=== PATIENT | male | born 1975 ===

== ENCOUNTER 2017-01-10 11:23 | Emergency (ER) | payer MEDICAID ==
[2017-01-10 11:30] VITALS: O2SAT 98
[2017-01-10 11:41] VITALS: BP 127/87; RESP 20; TEMP 97
[2017-01-10 12:52] LABS: BASO % 0.3 % (0.0-2.0); EOS % 0.5 % (0.0-4.0); HEMOGLOBIN 14.3 g/dL (12.0-18.0); LYMPH % 20.6 % (20.0-40.0); MEAN CELL VOLUME 96.1 fl (80.0-94.0); MEAN CORPUSCULAR HEMOGLOBIN 32.4 pg (27.0-31.0); MEAN CORPUSCULAR HGB CONC 33.7 g/dL (33.0-37.0); MEAN PLATELET VOLUME 9.3 fl (7.2-11.7); MONO # 0.4 K/uL (0.0-0.8); MONO % 8.6 % (0.0-10.0); NEUT # 3.5 K/uL (1.8-7.0); NRBC % 0.1 % (0.0-0.0); RBC 4.41 Mil/uL (4.40-5.90); RED CELL DISTRIBUTION WIDTH 12.7 % (11.5-14.5); WHITE BLOOD COUNT 5.1 K/uL (4.8-10.8)
[2017-01-10 12:53] LABS: ALB/GLOB RATIO 1.7 (1.0-2.1); ALBUMIN 4.8 g/dL (3.5-5.0); ALT/SGPT 40 U/L (21-72); AST/SGOT 54 U/L (17-59); BLOOD UREA NITROGEN 18 mg/dl (9-20); CALCIUM 9.1 mg/dL (8.4-10.2); GFR AFRICAN-AMERICAN > 60; GFR NON-AFRICAN AMERICAN > 60
[2017-01-10 13:01] LABS: SQUAMOUS EPITHIAL 1 /hpf (0-5); URINE BACTERIA RARE (<OCC); URINE BILIRUBIN NEGATIVE (NEGATIVE); URINE BLOOD NEGATIVE (NEGATIVE); URINE CLARITY SLIGHTY-CLOUDY (Clear); URINE COLOR AMBER (YELLOW); URINE GLUCOSE (UA) NEG (Normal); URINE LEUKOCYTE ESTERASE NEG Leu/uL (Negative); URINE NITRATE NEGATIVE (NEGATIVE); URINE PROTEIN 100 mg/dL (NEGATIVE)
--- NOTE | 2017-01-10 13:11 | ED PDOC ---
HPI: Psych/Substance Abuse Time Seen by Provider: 01/10/17 11:35 Chief Complaint (Nursing): Psychiatric Evaluation History Per: Patient Additional Complaint(s): Pt. brought in by [employer] as they found pt. to be diaphoretic and acting bizarre. Pt. offers no complaints but is requesting to leave ED. Pt. believes that there are "people after me." States he has a lot of money that people want. Pt. states this has been going on for 7 years and is attempting to contact a foreign language professor to get his life in order. Denies chest pain, SOB, palpitations, abdominal pain, fever, SI/HI, hallucinations. Past Medical History Reviewed: Historical Data, Nursing Documentation, Vital Signs Vital Signs: Last Vital Signs Temp 97 F L 01/10/17 11:40 Pulse 96 H 01/10/17 11:40 Resp 20 01/10/17 11:40 BP 127/87 01/10/17 11:40 Pulse Ox 98 01/10/17 11:40 - Medical History PMH: Anxiety, Asthma, Bipolar Disorder (from old chart but pt denies), Depression, Diabetes (type II), Hepatitis, Schizophrenia (from old chart but pt denies) Denies: HIV, HTN, Chronic Kidney Disease, Seizures, Sexually Transmitted Disease - Surgical History Surgical History: Tonsillectomy - Family History Family History: States: No Known Family Hx - Immunization History Hx Tetanus Toxoid Vaccination: No Hx Influenza Vaccination: No Hx Pneumococcal Vaccination: No - Home Medications Home Medications: Ambulatory Orders Medication Instructions Recorded Benztropine [Cogentin] 2 mg PO BID #60 tab 11/25/15 DiphenhydrAMINE [Benadryl] 50 mg PO Q6 PRN #30 cap 11/25/15 Divalproex [Depakote DR(*BID*)] 500 mg PO BID #60 tcp 11/25/15 Haloperidol [Haldol] 5 mg PO BID #60 tab 11/25/15 - Allergies Allergies/Adverse Reactions: Allergies Allergy/AdvReac Type Severity Reaction Status Date / Time No Known Allergies Allergy Verified 01/10/17 11:27 Review of Systems ROS Statement: Except As Marked, All Systems Reviewed And Found Negative Physical Exam - Reviewed Nursing Documentation Reviewed: Yes Vital Signs Reviewed: Yes - Physical Exam Appears: Positive for: Well, Non-toxic, No Acute Distress Head Exam: Positive for: ATRAUMATIC, NORMAL INSPECTION, NORMOCEPHALIC Skin: Positive for: Normal Color, Warm. Negative for: Rash Eye Exam: Positive for: EOMI, Normal appearance, PERRL ENT: Positive for: Normal ENT Inspection Neck: Positive for: Normal, Painless ROM Cardiovascular/Chest: Positive for: Regular Rate, Rhythm Respiratory: Positive for: CNT, Normal Breath Sounds Gastrointestinal/Abdominal: Positive for: Normal Exam, Bowel Sounds, Soft. Negative for: Tenderness Back: Positive for: Normal Inspection Extremity: Positive for: Normal ROM Neurologic/Psych: Positive for: Alert, Oriented, Mood/Affect (hyperverbal, flight of ideas but easily redirected; cooperative). Negative for: Aphasia, Facial Droop - Laboratory Results Result Diagrams: 01/10/17 12:15 01/10/17 12:15 - ECG ECG: Positive for: Interpreted By Me ECG Rhythm: Positive for: Sinus Rhythm. Negative for: ST/T Changes Rate: 60 O2 Sat by Pulse Oximetry: 98 - Progress ED Course And Treament: Labs ordered. Pt. evaluated by crisis and cleared pt. for discharge. On re-evaluation, pt. still without any complaints. Denies weakness, dizziness, chest pain, SOB, SI/HI, hallucinations. Disposition - Clinical Impression Clinical Impression: Schizophrenia - Patient ED Disposition Is Patient to be Admitted: No - Disposition Disposition: Routine/Home Disposition Time: 14:12 Condition: STABLE Instructions: Schizophrenia (ED)
[2017-01-10 13:14] VITALS: PULSE 60
[2017-01-10 13:18] LABS: BARBITURATES, UR NEGATIVE (NEGATIVE); BENZODIAZEPINES, UR NEGATIVE (NEGATIVE); OPIATES, UR NEGATIVE (NEGATIVE); PHENCYCLIDINE, UR NEGATIVE (NEGATIVE)
--- NOTE | 2017-01-10 14:20 | CARD ---
APPROVED REPORT EKG Measurement Heart [id number] <Conclusion> Normal sinus rhythm Normal ECG
== END 2017-01-10 14:28 | disposition home or self-care (01) ==
LOC: H.ER 11:23
DX: F20.9 Schizophrenia, unspecified (principal); F31.9 Bipolar disorder, unspecified; F41.9 Anxiety disorder, unspecified; J45.909 Unspecified asthma, uncomplicated; E11.9 Type 2 diabetes mellitus without complications

== ENCOUNTER 2017-01-16 20:15 | Emergency (ER) | payer MEDICAID ==
[2017-01-16 20:20] VITALS: BP 137/78; PULSE 72; RESP 20; TEMP 98; O2SAT 98
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
[2017-01-16 21:36] LABS: BASO % 0.3 % (0.0-2.0); EOS % 0.4 % (0.0-4.0); HEMATOCRIT 42.3 % (35.0-51.0); LYMPH # 1.6 K/uL (1.0-4.3); LYMPH % 29.8 % (20.0-40.0); MEAN CELL VOLUME 96.8 fl (80.0-94.0); MEAN CORPUSCULAR HEMOGLOBIN 32.3 pg (27.0-31.0); MEAN CORPUSCULAR HGB CONC 33.4 g/dL (33.0-37.0); MEAN PLATELET VOLUME 9.7 fl (7.2-11.7); MONO # 0.3 K/uL (0.0-0.8); NEUT # 3.5 K/uL (1.8-7.0); NEUT % 63.5 % (50.0-75.0); RED CELL DISTRIBUTION WIDTH 12.7 % (11.5-14.5); WHITE BLOOD COUNT 5.5 K/uL (4.8-10.8)
[2017-01-16 21:59] LABS: CHLORIDE 108 mmol/L (98-107); POTASSIUM 3.6 MMOL/L (3.6-5.0); RBC URINE 2 /hpf (0-3); SODIUM 144 mmol/l (132-148); URINE BILIRUBIN NEGATIVE (NEGATIVE); URINE BLOOD NEGATIVE (NEGATIVE); URINE COLOR AMBER (YELLOW); URINE GLUCOSE (UA) NEG (Normal); URINE KETONE NEGATIVE (NEGATIVE); URINE LEUKOCYTE ESTERASE NEG Leu/uL (Negative); URINE PROTEIN 30 mg/dL (NEGATIVE); WBC URINE 4 /hpf (0-5)
[2017-01-16 22:01] LABS: BILIRUBIN,TOTAL 0.8 mg/dl (0.2-1.3); CARBON DIOXIDE 28 mmol/L (22-30); GFR AFRICAN-AMERICAN > 60
[2017-01-16 22:02] LABS: ALB/GLOB RATIO 1.5 (1.0-2.1); ALKALINE PHOSPHATASE 90 U/L (38-126); ALT/SGPT 33 U/L (21-72); AST/SGOT 39 U/L (17-59); BLOOD UREA NITROGEN 10 mg/dl (9-20); CALCIUM 9.1 mg/dL (8.4-10.2); GLUCOSE,RANDOM 79 mg/dL (75-110); TOTAL PROTEIN 7.5 G/DL (6.3-8.2)
[2017-01-16 22:03] LABS: ALCOHOL SERUM < 10 mg/dl (0-10)
--- NOTE | 2017-01-17 09:50 | RAD ---
HISTORY: routine COMPARISON: Chest x-ray performed 11/17/15 TECHNIQUE: Chest, one view. FINDINGS: Examination limited by habitus. LUNGS: The left costophrenic angle is excluded from view. No focal consolidation. Please note that chest x-ray has limited sensitivity for the detection of pulmonary masses. PLEURA: No significant pleural effusion identified. No definite pneumothorax . CARDIOVASCULAR: Heart size appears within normal limits. OSSEOUS STRUCTURES: No acute osseous abnormality identified. VISUALIZED UPPER ABDOMEN: Unremarkable. OTHER FINDINGS: None. IMPRESSION: No focal consolidation, significant pleural effusion, or definite pneumothorax identified.
--- NOTE | 2017-01-17 10:21 | CARD ---
APPROVED REPORT EKG Measurement Heart [id number] <Conclusion> Normal sinus rhythm Normal ECG
== END 2017-01-16 23:10 | disposition home or self-care (01) ==
LOC: H.ER 20:15
DX: F29 Unspecified psychosis not due to a substance or known physiological condition (principal); E11.9 Type 2 diabetes mellitus without complications; F20.9 Schizophrenia, unspecified; F31.9 Bipolar disorder, unspecified; F41.9 Anxiety disorder, unspecified; J45.909 Unspecified asthma, uncomplicated

== ENCOUNTER 2017-01-29 09:33 | Emergency (ER) | payer MEDICAID ==
[2017-01-29 09:37] VITALS: BP 137/89; PULSE 83; TEMP 97; O2SAT 98; BMI 27.2
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
== END 2017-01-29 11:00 | disposition home or self-care (01) ==
LOC: H.ER 09:33 → SUPCPDRO 09:33 → H.ER 11:00
DX: F25.1 Schizoaffective disorder, depressive type (principal); F31.9 Bipolar disorder, unspecified; F41.9 Anxiety disorder, unspecified; E11.9 Type 2 diabetes mellitus without complications

== ENCOUNTER 2017-02-12 00:25 | Inpatient (IN) | payer MEDICAID ==
[2017-02-12] MEDS ORDERED: Gentamicin Sulfate 0.3% Ophth SOLN OU STA (01:27)
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
[2017-02-12] MEDS ORDERED: Gentamicin Sulfate 0.3% Ophth SOLN ONE (02:10)
[2017-02-12 03:00] LABS: BASO % 0.4 % (0.0-2.0); EOS % 0.6 % (0.0-4.0); HEMATOCRIT 39.9 % (35.0-51.0); LYMPH # 1.4 K/uL (1.0-4.3); LYMPH % 18.5 % (20.0-40.0); MEAN CELL VOLUME 96.1 fl (80.0-94.0); MEAN CORPUSCULAR HGB CONC 33.3 g/dL (33.0-37.0); MEAN PLATELET VOLUME 9.9 fl (7.2-11.7); MONO # 0.7 K/uL (0.0-0.8); MONO % 9.7 % (0.0-10.0); NEUT # 5.3 K/uL (1.8-7.0); NEUT % 70.8 % (50.0-75.0); RED CELL DISTRIBUTION WIDTH 12.6 % (11.5-14.5); WHITE BLOOD COUNT 7.4 K/uL (4.8-10.8)
[2017-02-12 03:16] LABS: RBC URINE 3 /hpf (0-3); URINE BILIRUBIN NEGATIVE (NEGATIVE); URINE BLOOD NEGATIVE (NEGATIVE); URINE COLOR AMBER (YELLOW); URINE GLUCOSE (UA) NEG (Normal); URINE KETONE 20 mg/dL (NEGATIVE); URINE LEUKOCYTE ESTERASE NEG Leu/uL (Negative); URINE PROTEIN 100 mg/dL (NEGATIVE); URINE UROBILINOGEN 0.2-1.0 mg/dL (0.2-1.0); WBC URINE 5 /hpf (0-5)
[2017-02-12 03:20] LABS: BLOOD UREA NITROGEN 22 mg/dl (9-20); CARBON DIOXIDE 26 mmol/L (22-30); CHLORIDE 101 mmol/L (98-107); GFR AFRICAN-AMERICAN > 60; GLUCOSE,RANDOM 85 mg/dL (75-110); POTASSIUM 3.5 MMOL/L (3.6-5.0); SODIUM 139 mmol/l (132-148)
[2017-02-12 03:21] LABS: ALB/GLOB RATIO 1.5 (1.0-2.1); ALKALINE PHOSPHATASE 88 U/L (38-126); ALT/SGPT 30 U/L (21-72); AST/SGOT 34 U/L (17-59); BILIRUBIN,TOTAL 1.5 mg/dl (0.2-1.3); TOTAL PROTEIN 7.2 G/DL (6.3-8.2)
[2017-02-12 03:22] LABS: ALCOHOL SERUM < 10 mg/dl (0-10)
[2017-02-12 03:57] VITALS: O2SAT 100
[2017-02-12] MEDS ORDERED: Magnesium Hydroxide Susp 30 ml UD PO PRN (04:37)
[2017-02-12] MEDS ORDERED: DiphenhydrAMINE 50 mg/ml Inj IM PRN (04:37)
[2017-02-12] MEDS ORDERED: Alum-Mag Hydrox-Simethicone Susp (30 mL) PO PRN (04:37)
--- NOTE | 2017-02-12 04:51 | PCM.BM ---
<Karla Davison - Last Filed: 02/12/17 04:49> Treatment Plan Problems - Problems identified on initial assessmt delusion Date Initiated: 02/12/17 Time Initiated: 04:49 Assessment reference: NA Status: Active medication non adherence Date Initiated: 02/12/17 Time Initiated: 04:50 Assessment reference: NA Status: Active Treatment assets and liabiliti Patient Assests: adapts well, self-reliant, ADL independent, physically healthy , negotiates basic needs, cognitively intact Patient Liabilities: live alone, poor support system, legal issue - Milieu Protocol Maintain good personal hygiene: daily Encourage regular showers, daily Remind patient to perform daily oral care, daily Assist patient to perform ADL's Conduct patient checks and document Observation sheet: Q15 minutes Maintain personal safety: every shift Educate patient to report safety concerns to staff, every shift Monitor environment for contraband/sharps Medication safety: Monitor for expected outcome, potential side effects: every shift, Assess barriers to learning: every shift, Assess readiness for medication education: every shift Discharge/Continuing Care - Education Needs Education Needs: Patient Medication, Patient Diagnosis/Disease Process, Patient Community resources, Patient Personal Hygiene/Grooming - Discharge Discharge Criteria: Tolerates medication w/o severe side effects, Free of paranoid thoughts, Normal sleep pattern Discharge to:: Home <Monica Gar - Last Filed: 02/12/17 09:46> - Diagnosis (1) Schizoaffective disorder Status: Acute Interventions: Medication management, psychoeducation, individual and group therapy, medicine consultation 02/12/17 09:47 <Dara Clemons - Last Filed: 02/13/17 16:56> Family Contact Family contact: Patient agrees to contact Family contact name: Sheri Mark (aunt) Family contacted how many times per week?: 2 Family contact comment: [phone] Discharge/Continuing Care - Education Needs Education Needs: Family Medication, Family Diagnosis/Disease Process, Family Community resources, Family Nutrition, Family Personal Hygiene/Grooming, Family Aftercare Safety Plan, Patient Medication, Patient Diagnosis/Disease Process, Patient Coping Skills, Patient Community resources, Patient Nutrition, Patient Personal Hygiene/Grooming, Patient Aftercare Safety Plan - Discharge Discharge Criteria: Tolerates medication w/o severe side effects, Free of paranoid thoughts, Free of agitation, Normal sleep pattern, Reduction of target symptoms Discharge to:: Home, With Family - Additional Comments 02/13/17 16:59 Due to extensive and multiple psychiatric hospitalizations (voluntary and involuntary) pt would benefit from a PACT TEAM test case developer vs. ICMS. Pt has an extensive hx of medication and treatment non-compliance. Pt has limited support system in the community. <Bill Robertson - Last Filed: 02/15/17 11:19> Family Contact - Goals for Treatment Patient goals for treatment: Pt is focused on housing and legal issues that he wants to be resolved.
[2017-02-12 07:45] LABS: T4 8.39 ug/dl (5.5-11.0)
[2017-02-12 07:58] LABS: THYROID STIMULATING HORMONE 0.65 mIU/ML (0.46-4.68)
--- NOTE | 2017-02-12 09:55 | RAD ---
HISTORY: admit COMPARISON: 01/16/2017. FINDINGS: LUNGS: No active pulmonary disease. PLEURA: No significant pleural effusion identified, no pneumothorax apparent. CARDIOVASCULAR: Normal. OSSEOUS STRUCTURES: No significant abnormalities. VISUALIZED UPPER ABDOMEN: Normal. OTHER FINDINGS: None. IMPRESSION: The lungs are well inflated and clear. No active pulmonary disease.
--- NOTE | 2017-02-12 10:17 | PCM.PSYCH ---
Initial Psychiatric Evaluation - Initial Psychiatric Evaluation Type of Admission: Voluntary Legal Status: Capacity Chief Complaint (in patient's own words): "Let me tell you my whole life story." Patient's Reaction to Hospitalization: HPI: 41 yo male w/ h/o schizoaffective d/o presents acutely psychotic, religiously preoccupied, w/ bizarre behavior, emotionally labile, non-linear speech, flight of ideas, paranoia and pressured/rapid speech. Patient was difficult to interview due to his acute disorganization and psychosis. He would not answer questions linearly. No SI/HI. PPHx: Multiple past psychiatric hospitalizations. [place] [facility] [place] History of non-compliance w/ treatment and medications. PMHx: Patient denies chronic medical issues, but he is a poor historian at this time. +Conjunctivitis ALL: NKDA SHx: Lives in an apt, denies drugs/etoh use. Current Medications: Active Medications Generic Name Dose Route Start Last Admin Trade Name Freq PRN Reason Stop Dose Admin Acetaminophen 650 mg 02/12/17 04:37 Tylenol 325mg Tab PO Q4 PRN pain 4-7 Al Hydrox/Mg Hydrox/Simethicone 30 ml 02/12/17 04:37 Maalox Plus 30 Ml PO Q4 PRN Dyspepsia Benztropine Mesylate 1 mg 02/12/17 09:45 Cogentin PO BID ALBARO Diphenhydramine HCl 50 mg 02/12/17 04:37 Benadryl IM Q6 PRN Extrapyramidal S/S Unable PO Diphenhydramine HCl 50 mg 02/12/17 04:37 Benadryl PO Q6 PRN Extrapyramidal Symptoms Diphenhydramine HCl 50 mg 02/12/17 04:40 Benadryl PO HS PRN Sleep Divalproex Sodium 500 mg 02/12/17 10:00 Donald Wang(*Bid*) PO BID ALBARO Haloperidol 5 mg 02/12/17 04:37 Haldol PO Q4 PRN Agitation Haloperidol 5 mg 02/12/17 09:45 Haldol PO BID ALBARO Haloperidol Lactate 5 mg 02/12/17 04:37 Haldol IM Q4 PRN Agitation, Unable to Take PO Lorazepam 2 mg 02/12/17 04:37 Ativan IM Q4 PRN Anxiety/Agitation,Unable PO Lorazepam 2 mg 02/12/17 04:37 Ativan PO Q4 PRN Anxiety/Agitation Magnesium Hydroxide 30 ml 02/12/17 04:37 Milk Of Magnesia PO HS PRN Constipation Past Psychiatric History - Past Psychiatric History Previous Treatment History: Inpatient Pertinent Medical Hx (Current Medical&Sleep Prob, Allergies): Allergies Allergy/AdvReac Type Severity Reaction Status Date / Time No Known Allergies Allergy Verified 02/12/17 00:57 Benztropine [Cogentin] 2 mg PO BID #60 tab 11/25/15 DiphenhydrAMINE [Benadryl] 50 mg PO Q6 PRN #30 cap 11/25/15 Divalproex [Depakote DR(*BID*)] 500 mg PO BID #60 tcp 11/25/15 Haloperidol [Haldol] 5 mg PO BID #60 tab 11/25/15 Review of Systems - Psychiatric Psychiatric: As Per HPI, Abnormal Sleep Pattern, Behavioral Changes, Depression , Difficulty Concentrating, Irritability, Mood Swings, Paranoia, Other ( Congregational preoccupation) Mental Status Examination - Personal Presentation Personal Presentation: Looks stated age - Affect Affect: Other (Labile, tearful) - Motor Activity Motor Activity: Calm - Reliability in Providing Information Reliability in Providing Information: Poor, due to alteration in thoughts - Speech Speech: Disorganized, Irrelevant, Tangential - Mood Mood: Depressed - Formal Thought Process Formal Thought Process: Delusions, Paranoia, Loosening of associations, Flight of ideas, Circumstantial - Hallucinations/Delusions Additional comments: Denies AH/VH, but patient seems to be internally preoccupied. - Obsessions/Compulsions Obsessions: No Compulsions: No - Cognitive Functions Orientation: Person, Place, Situation, Time Sensorium: Alert Estimate of Intelligence: Average Judgement: Intact, as evidence by: Insight regarding need for hospitalization Memory: Recent impaired, as evidence by: Inability to recall events of the day, Recent imparied as evidence by:Inability to complete 3/3 object recall - Risk Risk: Diminished functioning - Strength & Assets Inventory Strength & Assets Inventory: Cooperative - Limitations Limitations: Living alone DSM 5 DX - DSM 5 DSM 5 Diagnosis: Schizoaffective Disorder - Recommended/Plan of Treatment Treatment Recommendations and Plan of Treatment: Schizoaffective Disorder -Admit to psychiatry -Individual and group therapy -Haldol 5 mg PO BID, Cogentin 1 mg PO BID, Depakote 500 mg PO BID -Medicine consult -Contact precautions for conjunctivitis -NO 1:1 indicated at this time -Disposition planning Projected ELOS: 4-7 days Discharge Plan and Discharge Criteria: Discharge when psychiatrically stable
[2017-02-12] MEDS: Divalproex 500 mg DR(BID formulation) PO SCH ×2 (10:19→17:33)
--- NOTE | 2017-02-12 11:19 | CARD ---
APPROVED REPORT EKG Measurement Heart [id number] <Conclusion> Normal sinus rhythm Normal ECG
--- NOTE | 2017-02-12 16:14 | CP.PCM.CON ---
History of Present Illness - History of Present Illness History of Present Illness: REASON FOR CONSULT: PER HOSPITAL PROTOCOL HPI: 41 year old male with PMH of schizoaffective disorder. Patient extremely disorganized, unable to obtain a history on patient. ROS: Patient extremely disorganized, unable to obtain a history on patient. PMH/PSH/FH/SH/MEDS/ALLERGIES: Patient extremely disorganized, unable to obtain a history on patient. Vitals reviewed Constitutional- cooperative, awake, alert. Head- NCAT, PERRLEye- PERRL, normal accommodation ENT- normal exam, MMM Neck- normal inspection, supple, no JVD Respiratory- decreased BS, no wheezes rales rhonchi Cardiovascular- RRR, +S1, +S2 no MRG GI/Abdominal- normal bowel sounds, soft Extremities Exam- normal capillary refill, normal inspection Neurological Exam- alert, oriented Psych - normal mood, normal affect 02/12/17 02:52 02/12/17 02:52 41 year old male with PMH of schizoaffective disorder. Patient extremely disorganized, unable to obtain a history on patient. Schizoaffective Disorder management per Psychiatry team Past Patient History - Infectious Disease Hx of Infectious Diseases: None - Tetanus Immunizations Tetanus Immunization: Unknown - Past Medical History & Family History Past Medical History?: Yes - Past Social History Smoking Status: Former Smoker - CARDIAC Hx Cardiac Disorders: No Hx Hypertension: Yes - PULMONARY Hx Tuberculosis: No - NEUROLOGICAL HX Cerebrovascular Accident: No Hx Seizures: No - HEENT Hx HEENT Problems: No - RENAL Hx Chronic Kidney Disease: No - ENDOCRINE/METABOLIC Hx Endocrine Disorders: Yes Hx Diabetes Mellitus Type 2: Yes - HEMATOLOGICAL/ONCOLOGICAL Hx Cancer: No Hx Human Immunodeficiency Virus (HIV): No - INTEGUMENTARY Hx Dermatological Problems: No - MUSCULOSKELETAL/RHEUMATOLOGICAL Hx Musculoskeletal Disorders: No Hx Falls: No - GASTROINTESTINAL Hx Gastrointestinal Disorders: No - GENITOURINARY/GYNECOLOGICAL Hx Sexually Transmitted Disorders: No - PSYCHIATRIC Hx Schizophrenia: Yes Hx Substance Use: No - SURGICAL HISTORY Hx Tonsillectomy: Yes - ANESTHESIA Hx Anesthesia: Yes Hx Anesthesia Reactions: No Meds Allergies/Adverse Reactions: Allergies Allergy/AdvReac Type Severity Reaction Status Date / Time No Known Allergies Allergy Verified 02/12/17 00:57 - Medications Medications: Current Medications Acetaminophen (Tylenol 325mg Tab) 650 mg PO Q4 PRN PRN Reason: pain 4-7 Al Hydrox/Mg Hydrox/Simethicone (Maalox Plus 30 Ml) 30 ml PO Q4 PRN PRN Reason: Dyspepsia Benztropine Mesylate (Cogentin) 1 mg PO BID [facility] Last Admin: 02/12/17 10:20 Dose: 1 mg Diphenhydramine HCl (Benadryl) 50 mg IM Q6 PRN PRN Reason: Extrapyramidal S/S Unable PO Diphenhydramine HCl (Benadryl) 50 mg PO Q6 PRN PRN Reason: Extrapyramidal Symptoms Diphenhydramine HCl (Benadryl) 50 mg PO HS PRN PRN Reason: Sleep Divalproex Sodium (Depakote Dr(*Bid*)) 500 mg PO BID [facility] Last Admin: 02/12/17 10:19 Dose: 500 mg Haloperidol (Haldol) 5 mg PO Q4 PRN PRN Reason: Agitation Haloperidol (Haldol) 5 mg PO BID [facility] Last Admin: 02/12/17 10:20 Dose: 5 mg Haloperidol Lactate (Haldol) 5 mg IM Q4 PRN PRN Reason: Agitation, Unable to Take PO Lorazepam (Ativan) 2 mg IM Q4 PRN PRN Reason: Anxiety/Agitation,Unable PO Lorazepam (Ativan) 2 mg PO Q4 PRN PRN Reason: Anxiety/Agitation Magnesium Hydroxide (Milk Of Magnesia) 30 ml PO HS PRN PRN Reason: Constipation Results - Vital Signs Recent Vital Signs: Last Vital Signs Temp 97.1 F L 02/12/17 05:53 Pulse 75 02/12/17 05:53 Resp 18 02/12/17 05:53 BP 115/67 02/12/17 05:53 Pulse Ox 100 02/12/17 03:57 - Labs Result Diagrams: 02/12/17 02:52 02/12/17 02:52 Labs: Laboratory Results - last 24 hr 02/12/17 02/12/17 02/12/17 02:52 02:52 02:52 WBC 7.4 RBC 4.16 L Hgb 13.3 Hct 39.9 MCV 96.1 H MCH 32.0 H MCHC 33.3 RDW 12.6 Plt Count 180 MPV 9.9 Neut % (Auto) 70.8 Lymph % (Auto) 18.5 L [place] % (Auto) 9.7 Eos % (Auto) 0.6 Baso % (Auto) 0.4 Neut # 5.3 Lymph # 1.4 [place] # 0.7 Eos # 0.0 Baso # 0.0 Sodium 139 Potassium 3.5 L Chloride 101 Carbon Dioxide 26 Anion Gap 16 BUN 22 H Creatinine 0.7 L Est GFR ( Amer) > 60 Est GFR (Non-Af Amer) > 60 Random Glucose 85 Calcium 9.0 Total Bilirubin 1.5 H AST 34 ALT 30 Alkaline Phosphatase 88 Total Protein 7.2 Albumin 4.3 Globulin 2.9 Albumin/Globulin Ratio 1.5 Thyroxine (T4) Total T3 TSH 3rd Generation Urine Color Urine Clarity Urine pH Ur Specific [place] Urine Protein Urine Glucose (UA) Urine Ketones Urine Blood Urine Nitrate Urine Bilirubin Urine Urobilinogen Ur Leukocyte Esterase Urine RBC (Auto) Urine Microscopic WBC Ur Squamous Epith Cells Hyaline Casts Urine Opiates Screen Negative Urine Methadone Screen Negative Ur Barbiturates Screen Negative Ur Phencyclidine Scrn Negative Ur Amphetamines Screen Negative U Benzodiazepines Scrn Negative U Oth Cocaine Metabols Negative U Cannabinoids Screen Negative Alcohol, Quantitative < 10 02/12/17 02/12/17 02:52 06:30 WBC RBC Hgb Hct MCV MCH MCHC RDW Plt Count MPV Neut % (Auto) Lymph % (Auto) [place] % (Auto) Eos % (Auto) Baso % (Auto) Neut # Lymph # [place] # Eos # Baso # Sodium Potassium Chloride Carbon Dioxide Anion Gap BUN Creatinine Est GFR ( Amer) Est GFR (Non-Af Amer) Random Glucose Calcium Total Bilirubin AST ALT Alkaline Phosphatase Total Protein Albumin Globulin Albumin/Globulin Ratio Thyroxine (T4) 8.39 Total T3 1.21 L TSH 3rd Generation 0.65 Urine Color [place] Urine Clarity Cloudy Urine pH 5.0 Ur Specific [place] 1.034 H Urine Protein 100 Urine Glucose (UA) Neg Urine Ketones 20 Urine Blood Negative Urine Nitrate Negative Urine Bilirubin Negative Urine Urobilinogen 0.2-1.0 Ur Leukocyte Esterase Neg Urine RBC (Auto) 3 Urine Microscopic WBC 5 Ur Squamous Epith Cells 1 Hyaline Casts 3-5 H Urine Opiates Screen Urine Methadone Screen Ur Barbiturates Screen Ur Phencyclidine Scrn Ur Amphetamines Screen U Benzodiazepines Scrn U Oth Cocaine Metabols U Cannabinoids Screen Alcohol, Quantitative
[2017-02-13 08:21] LABS: ALB/GLOB RATIO 1.4 (1.0-2.1); ALKALINE PHOSPHATASE 80 U/L (38-126); ALT/SGPT 32 U/L (21-72); AST/SGOT 25 U/L (17-59); BILIRUBIN,TOTAL 0.9 mg/dl (0.2-1.3); BLOOD UREA NITROGEN 12 mg/dl (9-20); CALCIUM 8.6 mg/dL (8.4-10.2); CARBON DIOXIDE 27 mmol/L (22-30); CHLORIDE 103 mmol/L (98-107); CHOLESTEROL 118 mg/dL (0-199); GFR AFRICAN-AMERICAN > 60; GLUCOSE,RANDOM 86 mg/dL (75-110); SODIUM 140 mmol/l (132-148); TOTAL PROTEIN 6.6 G/DL (6.3-8.2)
[2017-02-13] MEDS: Divalproex 500 mg DR(BID formulation) PO SCH ×2 (08:54→19:09)
--- NOTE | 2017-02-13 08:55 | PCM.PYCHPN ---
Psychiatric Progress Note - Psychiatric Progress Note Patient seen today, length of contact: Patient evaluated, case discussed with team, chart reviewed, 35 min Patient Chief Complaint: "There was a light beam in my oatmeal" Problems Identified/Issues Discussed: Patient continues to be acutely disorganized, labile and paranoid. He talks about various people in his apartment building who were trying to drug him and accuse him of doing things so he can end up going to shelter. He is compliant with the medications and denies adverse effects. Tar Distillation Supervisor attempted to discuss starting Haldol Decanoate with the patient but he was only interested in talking about his delusions. Medication Change: No Medical Record Reviewed: Yes Mental Status Examination - Cognitive Function Orientation: Person, Place, Situation, Time Memory: Intact Attention: Poor Concentration: Poor Association: Loose Decription of patient's judgement and insights: Poor insight/judgment - Mood Mood: Depressed - Affect Affect: Other (Labile, tearful) - Speech Speech: Pressured - Formal Thought Process Formal Thought Process: Delusions, Paranoia, Loosening of associations, Flight of ideas, Circumstantial Psychotic Thoughts and Behaviors: +Paranoia, delusions - Suicidal Ideation Suicidal Ideation: No - Homicidal Ideation Homicidal Ideation: No Goal/Treatment Plan - Goal/Treatment Plan Need for Continued Stay: Remain at risks for inpatient hospitalization, Discharge may exacerbated symptoms, Severe functional impairment Progress Toward Problem(s) and Goals/Treatment Plan: Schizoaffective Disorder; patient continues to be disorganized, paranoid and delusional w/ poor insight and judgment. He requires continued hospitalization for treatment and safety. -Individual and group therapy -Continue Haldol 5 mg PO BID, Cogentin 1 mg PO BID, Depakote 500 mg PO BID -Medicine consult appreciated -Contact precautions for conjunctivitis -NO 1:1 indicated at this time -Disposition planning Estimated Date of D/C: 02/18/17
[2017-02-13] MEDS: Dexamethasone/Tobramycin Ophth Susp OU SCH ×5 (08:56→21:23)
[2017-02-14] MEDS: Dexamethasone/Tobramycin Ophth Susp OU SCH ×6 (01:29→21:39)
[2017-02-14] MEDS: Divalproex 500 mg DR(BID formulation) PO SCH ×2 (09:34→16:35)
--- NOTE | 2017-02-14 10:37 | PCM.PYCHPN ---
Psychiatric Progress Note - Psychiatric Progress Note Patient seen today, length of contact: Patient evaluated, case discussed with team, chart reviewed, 35 min Patient Chief Complaint: "You believe me don't you." Problems Identified/Issues Discussed: Patient continues to paranoid, but is less labile, with normal speech (not pressured) and more organized on conversation. Senior It Specialist discussed starting Haldol Decanoate, but he is not agreeable at this time due to concerns that someone may try to inject something harmful in him. He talks about various people in his apartment building who were trying to drug him and accuse him of doing things. He is compliant with the medications and denies adverse effects. Medication Change: No Medical Record Reviewed: Yes Mental Status Examination - Cognitive Function Orientation: Person, Place, Situation, Time Memory: Intact Attention: WNL Concentration: WNL Association: Loose Fund of Knowledge: WNL Decription of patient's judgement and insights: Poor insight/ improving judgment - Mood Mood: Depressed - Affect Affect: Constricted - Speech Speech: Appropriate - Formal Thought Process Formal Thought Process: Delusions, Paranoia, Loosening of associations, Flight of ideas, Circumstantial Psychotic Thoughts and Behaviors: +Paranoia, delusions - Suicidal Ideation Suicidal Ideation: No - Homicidal Ideation Homicidal Ideation: No Goal/Treatment Plan - Goal/Treatment Plan Need for Continued Stay: Remain at risks for inpatient hospitalization, Discharge may exacerbated symptoms, Severe functional impairment Progress Toward Problem(s) and Goals/Treatment Plan: Schizoaffective Disorder; patient continues to be paranoid and delusional w/ poor insight. He requires continued hospitalization for treatment and safety. -Individual and group therapy -Continue Haldol 5 mg PO BID, Cogentin 1 mg PO BID, Depakote 500 mg PO BID -Medicine consult appreciated -Discontinue contact precautions for conjunctivitis -NO 1:1 indicated at this time -Disposition planning Estimated Date of D/C: 02/18/17
[2017-02-15] MEDS: Dexamethasone/Tobramycin Ophth Susp OU SCH ×8 (01:00→21:07)
--- NOTE | 2017-02-15 08:20 | PCM.PYCHPN ---
Psychiatric Progress Note - Psychiatric Progress Note Patient seen today, length of contact: Patient evaluated, case discussed with team, chart reviewed, 35 min Patient Chief Complaint: "You believe me don't you." Problems Identified/Issues Discussed: Patient is improving clinically. He continues to paranoid, but is less labile, with normal speech, more organized on conversation, but continues to be tangential at times. He is compliant with the medications and denies adverse effects. Medication Change: No Medical Record Reviewed: Yes Mental Status Examination - Cognitive Function Orientation: Person, Place, Situation, Time Memory: Intact Attention: WNL Concentration: WNL Association: Loose Fund of Knowledge: WNL Decription of patient's judgement and insights: Poor insight/ improving judgment - Mood Mood: Depressed - Affect Affect: Constricted - Speech Speech: Appropriate - Formal Thought Process Formal Thought Process: Delusions, Paranoia, Loosening of associations, Flight of ideas, Circumstantial Psychotic Thoughts and Behaviors: +Paranoia, delusions - Suicidal Ideation Suicidal Ideation: No - Homicidal Ideation Homicidal Ideation: No Goal/Treatment Plan - Goal/Treatment Plan Need for Continued Stay: Remain at risks for inpatient hospitalization, Discharge may exacerbated symptoms, Severe functional impairment Progress Toward Problem(s) and Goals/Treatment Plan: Schizoaffective Disorder; patient continues to be paranoid and delusional. He requires continued hospitalization for treatment and safety. -Individual and group therapy -Continue Haldol 5 mg PO BID, Cogentin 1 mg PO BID, Depakote 500 mg PO BID -Medicine consult appreciated -NO 1:1 indicated at this time -Disposition planning Estimated Date of D/C: 02/18/17
[2017-02-15] MEDS: Divalproex 500 mg DR(BID formulation) PO SCH ×2 (08:48→16:58)
[2017-02-16] MEDS: Dexamethasone/Tobramycin Ophth Susp OU SCH ×6 (05:00→21:12)
[2017-02-16] MEDS: Divalproex 500 mg DR(BID formulation) PO SCH ×2 (08:50→17:32)
[2017-02-17] MEDS: Dexamethasone/Tobramycin Ophth Susp OU SCH ×6 (03:41→21:06)
[2017-02-17] MEDS: Divalproex 500 mg DR(BID formulation) PO SCH ×2 (09:44→17:39)
--- NOTE | 2017-02-17 18:44 | PCM.PYCHPN ---
Psychiatric Progress Note - Psychiatric Progress Note Patient seen today, length of contact: late note [id number] pt adelaida case discussed with team, chart reviewed, 35 min Patient Chief Complaint: was feeling like people were watching me following me taping my actions in my room Problems Identified/Issues Discussed: alteration in cognition Medical Problems: per chart Diagnostic Results: per psychiatry per medicine per nursing per social work Medication Change: No Medical Record Reviewed: Yes Consults ordered or reviewed: pt being seen by hospitalist Mental Status Examination - Cognitive Function Orientation: Person, Place, Situation, Time Memory: Intact Attention: WNL Concentration: WNL Association: Loose Fund of Knowledge: WNL Decription of patient's judgement and insights: impaired - Mood Mood: Depressed - Affect Affect: Constricted - Speech Speech: Appropriate - Formal Thought Process Formal Thought Process: Delusions, Paranoia, Loosening of associations, Flight of ideas, Circumstantial - Suicidal Ideation Suicidal Ideation: No - Homicidal Ideation Homicidal Ideation: No Goal/Treatment Plan - Goal/Treatment Plan Need for Continued Stay: Remain at risks for inpatient hospitalization, Discharge may exacerbated symptoms, Severe functional impairment Progress Toward Problem(s) and Goals/Treatment Plan: inpt milieu adjust meds per steve discharge planning in progress Estimated Date of D/C: 02/18/17 - Smoking Cessation Smoking Cessation Initiated: No Reason for not providing: pt defers
--- NOTE | 2017-02-17 18:46 | PCM.PYCHPN ---
Psychiatric Progress Note - Psychiatric Progress Note Patient seen today, length of contact: pt adelaida case discussed with team, chart reviewed, 35 min Patient Chief Complaint: was feeling like people were watching me following me taping my actions in my room Problems Identified/Issues Discussed: alteration in cognition Medical Problems: per chart Diagnostic Results: per psychiatry per medicine per nursing per social work DSM 5 Symptoms Update: alteration in cognition somewhat improving Medication Change: No Medical Record Reviewed: Yes Consults ordered or reviewed: pt being followed by hospitalist Mental Status Examination - Cognitive Function Orientation: Person, Place, Situation, Time Memory: Intact Attention: WNL Concentration: WNL Association: Loose Fund of Knowledge: WNL Decription of patient's judgement and insights: impaired - Mood Mood: Depressed - Affect Affect: Constricted - Speech Speech: Appropriate - Formal Thought Process Formal Thought Process: Delusions, Paranoia, Loosening of associations, Flight of ideas, Circumstantial - Suicidal Ideation Suicidal Ideation: No - Homicidal Ideation Homicidal Ideation: No Goal/Treatment Plan - Goal/Treatment Plan Need for Continued Stay: Remain at risks for inpatient hospitalization, Discharge may exacerbated symptoms, Severe functional impairment Progress Toward Problem(s) and Goals/Treatment Plan: inpt milieu adjust meds per aydeetus discharge planning in progress Estimated Date of D/C: 02/19/17 - Smoking Cessation Smoking Cessation Initiated: No Reason for not providing: pt defers
[2017-02-18] MEDS: Dexamethasone/Tobramycin Ophth Susp OU SCH ×6 (01:00→22:16)
[2017-02-18 05:40] VITALS: RESP 18
[2017-02-18] MEDS: Divalproex 500 mg DR(BID formulation) PO SCH ×2 (08:36→16:59)
--- NOTE | 2017-02-18 09:02 | PCM.PYCHPN ---
Psychiatric Progress Note - Psychiatric Progress Note Patient seen today, length of contact: Patient evaluated, case discussed with team, chart reviewed 35 min Patient Chief Complaint: "I'm feeling better" Problems Identified/Issues Discussed: Patient continues to improve clinically. He is calmer, more linear on conversation. Even though he does have paranoid beliefs about what has happened to him in the past, he is less pressured about them and feels safe returning to his apt. He does not feel he is in any acute danger. He is compliant with the medications and denies adverse effects. Diagnostic Results: VPA 51.7 on 02/17/17 Medication Change: No Medical Record Reviewed: Yes Mental Status Examination - Cognitive Function Orientation: Person, Place, Situation, Time Memory: Intact Attention: WNL Concentration: WNL Association: WNL Fund of Knowledge: WN Decription of patient's judgement and insights: Improving I/J - Mood Mood: Neutral - Affect Affect: Constricted - Speech Speech: Appropriate - Formal Thought Process Formal Thought Process: Paranoia Psychotic Thoughts and Behaviors: +Less paranoia - Suicidal Ideation Suicidal Ideation: No - Homicidal Ideation Homicidal Ideation: No Goal/Treatment Plan - Goal/Treatment Plan Need for Continued Stay: Remain at risks for inpatient hospitalization Progress Toward Problem(s) and Goals/Treatment Plan: Schizoaffective Disorder; patient is improving clinically, if he continues to improve, he will likely be psychiatrically stable for discharge tomorrow. -Individual and group therapy -Stop Haldol PO (patient now on Haldol Decanoate dose given 02/15/17), Cogentin 1 mg PO BID, Depakote 500 mg PO BID -Medicine consult appreciated -Disposition planning Estimated Date of D/C: 02/19/17
[2017-02-18 14:34] VITALS: BMI 30.4
[2017-02-19] MEDS: Dexamethasone/Tobramycin Ophth Susp OU SCH ×4 (01:01→13:15)
[2017-02-19 05:55] VITALS: BP 95/57; PULSE 53; TEMP 97.2
--- NOTE | 2017-02-19 08:29 | PCM.PYCHDC ---
Mental Status Examination - Mental Status Examination Orientation: Person, Place, Situation, Time Memory: Intact Mood: Neutral Affect: Broad Speech: Appropriate Attention: WNL Concentration: WNL Association: WNL Fund of Knowledge: WNL Formal Thought Process: No Impairment Description of patient's judgement and insight: Fair I/J Psychotic Thoughts and Behaviors: Denies AH/VH/paranoia Suicidal Ideation: No Current Homicidal Ideation?: No Discharge Summary - Discharge Note Reason for Hospitalization: HPI: 41 yo male w/ h/o schizoaffective d/o presents acutely psychotic, religiously preoccupied, w/ bizarre behavior, emotionally labile, non-linear speech, flight of ideas, paranoia and pressured/rapid speech. Patient was difficult to interview due to his acute disorganization and psychosis. He would not answer questions linearly. No SI/HI. PPHx: Multiple past psychiatric hospitalizations. Last hospitalized at [facility] [place] in 11/2015. History of non-compliance w/ treatment and medications. PMHx: Patient denies chronic medical issues, but he is a poor historian at this time. +Conjunctivitis ALL: NKDA SHx: Lives in an apt, denies drugs/etoh use. Laboratory Data: VPA 51.7 on 02/17/17 Consultations:: List each consultation separately and include: 1. Reason for request. 2. Findings. 3. Follow-up Consultations: Medicine consult- patient treated for conjunctivitis Summary of Hospital Course include:: 1. Description of specific treatment plan utilized for patients during their course of treatmen. 2. Summarize the time- course for resolution of acute symptoms and/or regressed behaviors. 3. Describe issues identified and worked on during hospitalization. 4. Describe medication utilized. 5. Describe medical problems identified and treated. 6. Reassessment of suicide risk Summary of Hospital Course: Patient admitted to the psychiatry unit. He was stabilized on Haldol 5 mg PO BID and then was transition to Haldol Decanoate 100 mg PO Daily and then the Haldol PO was tapered and stopped. Patient was also treated w/ cogentin and stabilized on Depakote 500 mg PO BID. Patient is no longer manic, is more linear on conversation and is not expressing paranoid ideation. He is psychiatrically stable for discharge at this time. - Diagnosis (1) Schizoaffective disorder Current Visit: Yes Status: Chronic - Final Diagnosis (DSM 5) Condition upon Discharge: STABLE DSM 5: Schizoaffective Disorder, Bipolar type Disposition: HOME/ ROUTINE Follow-up Treatment Plan: Schizoaffective Disorder; patient is now psychiatrically stable for discharge. -Haldol Decanoate 100 mg PO Monthly (next dose due 03/15/17), Cogentin 1 mg PO BID, Depakote 500 mg PO BID -VPA 51.7 on 02/17/17 -Medicine consult appreciated Prescriptions/Medication Reconciliation: Benztropine [Cogentin] 1 mg PO BID #60 tab Divalproex [Depakote DR(*BID*)] 500 mg PO BID #60 tcp - Smoking Cessation Smoking Cessation Medication prescribed: No Reason for not providing: Not indicated - Antipsychotic Medications Pt discharged on 2 or more routine antipsychotic medications: No
[2017-02-19] MEDS: Divalproex 500 mg DR(BID formulation) PO SCH (09:06)
== END 2017-02-19 15:30 | disposition home or self-care (01) | DRG 430 ==
LOC: H.ER 00:25 → H.ERHOLD 02:14 → H.STEP 04:33
PROVIDERS: ADMIT Psychiatry & Neurology Psychiatry; ATTEND Psychiatry & Neurology Psychiatry
PROC: GZ51ZZZ Individual Psychotherapy, Behavioral (ICD-10-PCS; principal; 2017-02-12)
DX: F25.0 Schizoaffective disorder, bipolar type (principal); E11.9 Type 2 diabetes mellitus without complications; I10 Essential (primary) hypertension; H10.9 Unspecified conjunctivitis; J45.909 Unspecified asthma, uncomplicated; F32.9 Major depressive disorder, single episode, unspecified; F41.9 Anxiety disorder, unspecified; Z79.899 Other long term (current) drug therapy; Z87.891 Personal history of nicotine dependence; Z91.14 Patient's other noncompliance with medication regimen; Z91.19 Patient's noncompliance with other medical treatment and regimen

== ENCOUNTER 2018-03-25 18:46 | Emergency (ER) | payer MEDICAID ==
[2018-03-25 18:48] VITALS: BMI 30.4
[2018-03-25 19:14] VITALS: PULSE 88; RESP 16; TEMP 98.7; O2SAT 97
--- NOTE | 2018-03-25 20:00 | ED PDOC ---
HPI: General Adult Chief Complaint (Provider): Cough, sore throat History Per: Patient History/Exam Limitations: no limitations Onset/Duration Of Symptoms: Days Have you had recent travel within the past 21 days to any of the following countries: [place], [place], [place] or [place]?: No Current Symptoms Are (Timing): Still Present Additional Complaint(s): 42 yo male with history of schizophrenia presents for evaluation of cough and sore throat. Pt denies fever/chills. No phlegm. No chest pain. <Vanesa Kennedy - Last Filed: 03/25/18 19:50> <Kate Schroeder - Last Filed: 03/25/18 22:16> Time Seen by Provider: 03/25/18 19:15 Chief Complaint (Nursing): Cough, Cold, Congestion Past Medical History Reviewed: Historical Data, Nursing Documentation, Vital Signs Vital Signs: Last Vital Signs Temp 98.7 F 03/25/18 19:12 Pulse 88 03/25/18 19:12 Resp 16 03/25/18 19:12 BP Pulse Ox 97 03/25/18 19:12 - Medical History PMH: Anxiety, Asthma, Bipolar Disorder (from old chart but pt denies), Depression, Diabetes (type II), HTN, Schizophrenia Denies: Hepatitis, HIV, Chronic Kidney Disease, Seizures, Sexually Transmitted Disease - Surgical History Surgical History: Tonsillectomy - Family History Family History: States: Unknown Family Hx - Immunization History Hx Tetanus Toxoid Vaccination: No Hx Influenza Vaccination: No Hx Pneumococcal Vaccination: No <Vanesa Kennedy - Last Filed: 03/25/18 19:50> Vital Signs: Last Vital Signs Temp 98.7 F 03/25/18 19:12 Pulse 88 03/25/18 19:12 Resp 16 03/25/18 19:12 BP Pulse Ox 97 03/25/18 20:02 <Kate Schroeder - Last Filed: 03/25/18 22:16> - Home Medications Home Medications: Ambulatory Orders Medication Instructions Recorded RX: Benztropine [Cogentin] 1 mg PO BID #60 tab 02/19/17 RX: Dexamethasone/Tobramycin 2 drop OU Q4 #1 bottle 02/19/17 [Tobradex Opht Susp] RX: Divalproex [Depakote DR(*BID*)] 500 mg PO BID #60 tcp 02/19/17 RX: Doxycycline Monohydrate 100 mg PO BID #20 capsule 03/25/18 [Mondoxyne Nl] - Allergies Allergies/Adverse Reactions: Allergies Allergy/AdvReac Type Severity Reaction Status Date / Time No Known Allergies Allergy Verified 03/25/18 19:11 Review of Systems ROS Statement: Except As Marked, All Systems Reviewed And Found Negative Constitutional: Negative for: Fever, Chills Cardiovascular: Negative for: Chest Pain Respiratory: Positive for: Cough. Negative for: Shortness of Breath Gastrointestinal: Negative for: Nausea, Vomiting, Abdominal Pain <Vanesa Kennedy - Last Filed: 03/25/18 19:50> Physical Exam - Reviewed Nursing Documentation Reviewed: Yes Vital Signs Reviewed: Yes - Physical Exam Appears: Positive for: Well, Non-toxic, No Acute Distress Head Exam: Positive for: ATRAUMATIC, NORMAL INSPECTION, NORMOCEPHALIC Skin: Positive for: Normal Color, Warm, DRY Eye Exam: Positive for: Normal appearance ENT: Positive for: Normal ENT Inspection. Negative for: Pharynx Is, TM Is/Are Neck: Positive for: Normal, Painless ROM Cardiovascular/Chest: Positive for: Regular Rate, Rhythm Respiratory: Positive for: Normal Breath Sounds. Negative for: Accessory Muscle Use, Respiratory Distress Back: Positive for: Normal Inspection Extremity: Positive for: Normal ROM Neurologic/Psych: Positive for: Alert, Oriented <Vanesa Kennedy - Last Filed: 03/25/18 19:50> - ECG O2 Sat by Pulse Oximetry: 97 <Vanesa Knenedy - Last Filed: 03/25/18 19:50> Disposition - Patient ED Disposition Is Patient to be Admitted: No Counseled Patient/Family Regarding: Diagnosis, Need For Followup - Disposition Disposition: Routine/Home Disposition Time: 20:00 <Vanesa Kennedy - Last Filed: 03/25/18 19:50> <Kate Schroeder - Last Filed: 03/25/18 22:16> - Clinical Impression Clinical Impression: URI (upper respiratory infection) - Disposition Condition: STABLE Prescriptions: RX: Doxycycline Monohydrate [Mondoxyne Nl] 100 mg PO BID #20 capsule Instructions: Bacterial Upper Respiratory Infection, Adult Forms: [facility] ([place]) - PA / [employer] / Resident Statement MD/DO has reviewed & agrees with the documentation as recorded. <Kate Schroeder - Last Filed: 03/25/18 22:16>
== END 2018-03-25 20:16 | disposition home or self-care (01) ==
LOC: H.ER 18:46
DX: J06.9 Acute upper respiratory infection, unspecified (principal); E11.9 Type 2 diabetes mellitus without complications